=== PATIENT | male | born 1955 | race Caucasian/White ===

== ENCOUNTER 2017-10-11 09:55 | Emergency (ER) | payer OTHER ==
[~2017-10-11] VITALS: Ht 170.2 cm; Wt 44.5 kg
[~2017-10-11 09:55] MED LIST: B-12 PO; CALCA500CH PO; CITA20 PO; CLON.5 PO; DIAZ10 PO; ENOX80I SQ; FURO20 PO; HYDPAM25 PO; IMATINIB 400 MG; LEVSOD25 PO; LEVSOD75 PO; LISI20 PO; MULVITMIND; OMEP20ER PO; OXYC5 PO; POTA10T PO; TRAM50 PO; TRAZ50 PO; Vitamin C100 M1; ZOLP10 PO; Zofran Odt4 MG SL
[2017-10-11] MEDS ORDERED: DOXE25 PO (11:07)
[2017-10-11] MEDS ORDERED: CYAN1000I IM (11:08)
[2017-10-11] MEDS ORDERED: SIME80CH PO (11:09)
[2017-10-11] MEDS ORDERED: OMEPRAZOLE MAGN20 MG PO (11:09)
== END 2017-10-11 12:05 | disposition home or self-care (01) ==
LOC: ER 09:55
DX: K94.23 Gastrostomy malfunction (principal); Z88.8 Allergy status to other drugs, medicaments and biological substances; Z79.899 Other long term (current) drug therapy; I10 Essential (primary) hypertension
CPT/HCPCS: 99282

== ENCOUNTER 2018-11-20 15:18 | Observation (INO) | payer OTHER ==
[~2018-11-20] VITALS: Ht 167.6 cm; Wt 42.1 kg
[~2018-11-20 15:18] MED LIST changes: +CYAN1000I IM; +DOXE25 PO; +OMEPRAZOLE20 MG PO; +SIME80CH PO
[2018-11-20 15:41] LABS: BASOPHILS ABSOLUTE AUTO 0.03 K/mm3 (0.00-0.23); BASOPHILS PERCENT AUTO 0 % (0-2); EOSINOPHILS ABSOLUTE AUTO 0.01 K/mm3 (0.00-0.68); EOSINOPHILS PERCENT AUTO 0 % (0-6); Hematocrit 31.8 % (37.0-53.0); IMMATURE GRAN ABSOLUTE AUTO 0.15 K/mm3 (0.00-0.10); IMMATURE GRAN PERCENT AUTO 1 % (0-1); LYMPHOCYTES ABSOLUTE AUTO 1.77 K/mm3 (0.84-5.20); LYMPHOCYTES PERCENT AUTO 10 % (21-46); MONOCYTES ABSOLUTE AUTO 1.68 K/mm3 (0.16-1.47); MONOCYTES PERCENT AUTO 9 % (4-13); Mean Corpuscular HGB 32.8 pg (26.0-34.0); Mean Corpuscular HGB Conc 34.6 g/dL (31.5-36.5); Mean Platelet Volume 10.2 fL (9.1-12.4); NEUTROPHILS ABSOLUTE AUTO 14.96 K/mm3 (1.96-9.15); NEUTROPHILS PERCENT AUTO 80 % (41-73); Platelet Count 396 K/mm3 (150-400); RDW Coefficient Variation 16.1 % (11.7-14.2); Red Blood Cell Count 3.35 M/mm3 (4.30-5.90)
[2018-11-20 15:44] LABS: Mean Corpuscular Volume 95 fL (80-100)
[2018-11-20 16:01] LABS: Alanine Aminotransfer (ALT/SGP 11 U/L (12-78); Albumin, Blood 1.8 g/dL (3.4-5.0); Albumin/Globulin Ratio 0.4 (0.8-1.8); Alk Phos 95 U/L (50-136); Anion Gap 9 mmol/L (6-16); Aspartate Aminotrans (AST/SGOT 23 U/L (12-37); Blood Urea Nitrogen 23 mg/dL (8-24); Bun/Creatinine Ratio 30.5 (12.0-20.0); CO2, Blood 31 mmol/L (21-32); Calcium, Blood 6.8 mg/dL (8.5-10.1); Chloride, Blood 101 mmol/L (98-108); Creatinine, Blood 0.76 mg/dL (0.60-1.20); Glomerular Filtration Rate >60 (60-); Glucose, Blood 60 mg/dL (70-99); Potassium, Blood 2.8 mmol/L (3.5-5.5); Sodium, Blood 141 mmol/L (136-145); Total Protein, Blood 5.8 g/dL (6.4-8.2)
[2018-11-20 17:13] LABS: Troponin I <0.015 ng/mL (0.000-0.040)
[2018-11-20 21:05] LABS: Thyroid Stimulating Hormone 0.931 uIU/mL (0.360-4.800)
--- NOTE | 2018-11-20 21:20 | NUR ---
ADMISSION NOTE PT ARRIVED TO UNIT VIA STRETCHER, SLIDE TRANSFER TO BED. PT IS A&OX4, REPORTS BEING NONAMBULATORY FOR 2-3 WEEKS. PT IS CACHECTIC, REPORTS POOR APPETITE AND N/V/D FOR THE "LAST FEW MONTHS". K+ 2.8 UPON ARRIVAL, RECIEVED KCL IN ER. PLACED ON SUPPLEMENTAL O2 2L VIA NC UPON ARRIVAL, SEE NOTE. ASSUMING CARE OF PT.
--- NOTE | 2018-11-20 21:42 | NUR ---
O2 SATS O2 SATS 87% ON RA. PLACED ON 2L VIA NC; O2 SATS 94%.
[2018-11-20] MEDS ORDERED: Anti-Diarrheal2 MG PO (23:07)
[2018-11-20] MEDS ORDERED: POTA8 PO (23:09)
[2018-11-20] MEDS ORDERED: Prinivil10 MG PO (23:10)
[2018-11-20] MEDS ORDERED: STIVARGA40 MG PO (23:10)
[2018-11-20] MEDS ORDERED: VENL75ER PO (23:11)
--- NOTE | 2018-11-21 05:16 | NUR ---
SHIFT SUMMARY PT IS VERY FLAT, WITHDRAWN, DEPRESSED. A&OX4, CALL LT APPROP. STOOD AT SIDE OF BED TO VOID WITH 2 PERS ASSIST. PT VERY WEAK AND FRAIL. BED ALARM ON FOR SAFETY. ON 2L VIA NC, O2 SATS 93% AT THIS TIME. BASELINE RA. DENIES ANY PAIN OR ANXIETY. NO N/V/D TONIGHT, STOOL SAMPLE STILL NEEDED. TELE IN PLACE; NSR @ 81 BPM. MEPILEX PLACED ON COCCYX FOR PREVENTIVE MEASURES, HOWEVER, PT REPOSITIONS SELF IN BED FINE. WILL CONT TO MONITOR AND PROVIDE CARE UNTIL PRESUMED BY ONCOMING RN.
[2018-11-21 05:48] LABS: BASOPHILS ABSOLUTE AUTO 0.02 K/mm3 (0.00-0.23); BASOPHILS PERCENT AUTO 0 % (0-2); EOSINOPHILS ABSOLUTE AUTO 0.02 K/mm3 (0.00-0.68); EOSINOPHILS PERCENT AUTO 0 % (0-6); Hematocrit 31.9 % (37.0-53.0); Hemoglobin 10.7 g/dL (13.5-17.5); IMMATURE GRAN PERCENT AUTO 1 % (0-1); LYMPHOCYTES ABSOLUTE AUTO 1.84 K/mm3 (0.84-5.20); LYMPHOCYTES PERCENT AUTO 11 % (21-46); MONOCYTES PERCENT AUTO 13 % (4-13); Mean Corpuscular HGB Conc 33.5 g/dL (31.5-36.5); Mean Corpuscular Volume 96 fL (80-100); NEUTROPHILS ABSOLUTE AUTO 12.43 K/mm3 (1.96-9.15); NEUTROPHILS PERCENT AUTO 75 % (41-73); Platelet Count 232 K/mm3 (150-400); RDW Coefficient Variation 16.5 % (11.7-14.2); RDW Standard Deviation 57.9 fL (35.1-46.3); Red Blood Cell Count 3.34 M/mm3 (4.30-5.90); White Blood Cell Count 16.51 K/mm3 (4.00-11.30)
[2018-11-21 06:02] LABS: Alanine Aminotransfer (ALT/SGP 9 U/L (12-78); Albumin, Blood 1.6 g/dL (3.4-5.0); Albumin/Globulin Ratio 0.4 (0.8-1.8); Alk Phos 87 U/L (50-136); Anion Gap 9 mmol/L (6-16); Aspartate Aminotrans (AST/SGOT 24 U/L (12-37); Bilirubin, Total 0.9 mg/dL (0.1-1.0); Blood Urea Nitrogen 22 mg/dL (8-24); Bun/Creatinine Ratio 33.4 (12.0-20.0); CO2, Blood 29 mmol/L (21-32); Calcium, Blood 6.8 mg/dL (8.5-10.1); Chloride, Blood 104 mmol/L (98-108); Creatinine, Blood 0.66 mg/dL (0.60-1.20); Globulin, Blood 3.7 g/dL (2.2-4.0); Glomerular Filtration Rate >60 (60-); Glucose, Blood 59 mg/dL (70-99); Magnesium, Blood 2.3 mg/dL (1.6-2.4); Potassium, Blood 2.9 mmol/L (3.5-5.5); Sodium, Blood 142 mmol/L (136-145); Total Protein, Blood 5.3 g/dL (6.4-8.2)
[2018-11-21 14:56] LABS: Source, Urine Clean Catch
[2018-11-21 15:08] LABS: Bilirubin, Urine Neg (Neg); Blood, Urine 4+ (Neg); Glucose Qualitative, Urine Neg (Neg); Ketones, Urine 1+ (Neg); Leukocyte Esterase, Urine 2+ (Neg); Nitrite, Urine Neg (Neg); Protein, Urine 1+ (Neg); Urobilinogen, Urine 1+ (Normal)
[2018-11-21 15:18] LABS: Appearance, Urine Hazy (Clear); Color, Urine Yellow (P-Yellow)
[2018-11-21 15:27] LABS: Bacteria Many /hpf; Mucus Light (0-Heavy); Squamous Epithelial Cells Few /hpf (Few); White Blood Cells, Urine 25-50 /hpf (0-5)
--- NOTE | 2018-11-21 16:07 | NUR ---
SHIFT SUMMARY PT RESTING QUIETLY MOST OF THE DAY. DENIED NEEDS. PT'S SISTER IN TO SEE PT, ASKING QUESTIONS R/T PLAN OF CARE. DR LAY IN TO SEE PT WHEN SISTER OUT OF . CONSULT ORDERED FOR DR GARCIA TO SEE PT. DR GARCIA TO AND DISCUSSED PLAN OF CARE WITH PT AND HIS SISTER. PT REQUESTING TO BE MADE COMFORT CARE AND TO GO HOME ON HOSPICE. DR LAY TO WHEN DR GARCIA WAS LEAVING. BOTH AGREED WITH PLAN OF CARE. PALLATIVE RN TO AND TALKED TO PT AND SISTERS. MEDS ORDERED AND HOSPICE REFERRAL DONE. PT REPORTED TO PALLATIVE CARE RN THAT HE WAS ANXIOUS AND IN PAIN. PT MEDICATED WITH ATIVAN AND ROXANOL. PT REPORTED MEDICATIONS EFFECTIVE. PT HAD C/O NAUSEA BEFORE LUNCH TO SISTER AND REQUESTED A YOGURT; PT REPORTED NAUSEA GONE AFTER EATING A FEW BITES. PT HAS NOT BEEN EATING MUCH AT ALL, BUT FELT BETTER AFTER EATING EVEN A FEW BITES. FAMILY REMAINS IN AT BS. CALL LT IN REACH.
--- NOTE | 2018-11-21 16:27 | NUR ---
INITIAL PAL CARE VISIT/COMFORT CARE VISIT: PAL CARE REFERRAL REQUESTED FOR ADVANCED CARE PLANNING. CASE CONFERENCED WITH THIS AM AND RN THIS AFTERNOON BEFORE MY VISIT. EMR REVIEWED INCLUDING DR GARCIA'S NOTE OF TODAY. PT WAS DX WITH STROMAL GI TUMOR IN 2008 AND WAS RECENTLY UNDERGOING TX TO SHRINK MASS FOR RESECTION. IN THE PAST 6 WEEKS HIS TUMOR SIZE INCREASED FROM 11CM [address] GARCIA IS RECOMMENDING HOSPICE CARE AT THIS TIME AND PT/SISTERS ARE IN AGREEMENT. THEY HAD [facility] FOR THEIR MOTHER AND REQUEST [facility] AT THIS TIME. HOSPICE ORDERS ENTERED WITH DETAILS OF REQUESTS ADDED. MET WITH PT AND SISTERS AT BEDSIDE. ALL THREE REITERATE THAT THEY ARE SEEKING COMFORT CARE AND HOSPICE SERVICES IN PT'S APARTMENT AT [facility] OR [facility] SETTING NEEDED. YIMI, NIELS IN TO DISCUSS OPTIONS AND DC PLANNING WITH THEM AFTER MY VISIT. S/S ASSESSMENT DONE AND PT REPORTING DISCOMFORT, PAIN, ANXIETY AND SL NAUSEA. PT/SISTERS WOULD LIKE COMFORT CARE INITIATED. REPORT CALLED TO AND COMFORT CARE ORDERS OBTAINED AND ENTERED. ALL OF THE NEW ORDERS EXPLAINED TO PT AND FAMILY. PT APPEARS EXHAUSTED. HE IS OF SLIGHT BUILD AND VERY THIN. DISCUSSED RECOMMENDATIONS AND ORDERS WITH HIS BEDSIDE NURSE BEFORE AND AFTER ENTERING ORDERS. PLAN TO ASSESS IN AM FOR S/S AND OTHER NEEDS. WILL FOLLOW WITH CM FOR ADVANCED CARE AND DC PLANNING.
--- NOTE | 2018-11-21 21:26 | NUR ---
11/21/18 2100 DOSING AND DENIES ANY S/S OR DISCOMFORT. ENCOURAGED ORAL INTAKE AND TOOK SIPS OF SODA. DENIED NEED TO VOID.
--- NOTE | 2018-11-22 00:31 | NUR ---
11/22/18 0030 SLEEPING WELL AT THIS TIMES. NO DISCOMFORT OR S/S OBSERVED.
--- NOTE | 2018-11-22 04:56 | NUR ---
11/22/18 0430 CONTINUES TO SLEEP WELL. HAS TURNED HIMSELF SIDE TO SIDE SEVERAL TIMES LAST NIGHT. NO PAIN OR ANXIETY MEDS GIVEN THIS SHIFT YET.
--- NOTE | 2018-11-22 10:51 | NUR ---
PAL CARE COMFORT CARE VISIT. PT SLEEPING SOUNDLY WITH NO VISITORS PRESENT. HE DID NOT STIR TO VERBAL OR GENTLE TACTILE STIMULI. RESP EVEN AND UNLABORED. SLIGHT GRIMACING NOTED SPORATICALLY BUT NO NONVERBAL INDICATORS OF PAIN NOTED OTHERWISE. NO S/S ON AGITATION OR DISTRESS. UPDATE OBTAINED FROM REVIEW OF EMR AND SPOKE WITH RN. PLAN REMAINS FOR PT TO RETURN TO [facility], POSSIBLE TO [facility] SIDE WITH CG AND SISTERS' ASSIST AND HOSPICE/[facility] SERVICES. WILL REMAIN AVAIL NEEDED FOR ADVANCED CARE PLANNING AND S/S MANAGEMENT. SL/PO MEDS MANAGING S/S WELL AT THIS TIME.
--- NOTE | 2018-11-22 19:49 | NUR ---
SHIFT SUMMARY NO ACUTE CHANGES TO PRESENT THIS SHIFT. PT RESTING QUIETLY AT START OF SHIFT. CONTINUED TO DENY NEEDING ANYTHING FOR PAIN FOR SEVERAL HOURS. REFUSED TO EAT ANY MEALS TODAY. OFFERED ASSISTANCE MULTIPLE TIMES, BUT DIFFERENT STAFF. DR POWERSTRATE IN TO SEE PT THIS AM. PT VERY DEPRESSED AT PROGNOSIS, WITH FLAT AFFECT. NOW THAT HE HAS NOT BEEN EATING, PT IS BECOMING DELIRIOUS AND MAKING NONSENSICAL COMMENTS. PT'S SISTERS IN TO SEE PT AND STAYED BY HIS SIDE FOR SEVERAL HOURS. PT TO GO TO [facility] ON HOSPICE, IN THE AM AT 9:30. JEWELL RN HERE TO SEE PT AND SISTERS TODAY AND OBTAIN MED LIST IN PREPARATION FOR TOMORROW. D/C TO BE DONE LETY IN AM TO HAVE PT READY FOR P/U. REPORT GIVEN TO ONCNIDHI RN. CALL LT IN REACH.
--- NOTE | 2018-11-22 22:31 | NUR ---
11/22/18 2200 DOSING. DENIES ANY PAIN OR ANXIETY AT THIS TIME. NO DISTRESS NOTED. DECLINED ANY ORAL INTAKE FOR NOW. FELL BACK ASLEEP.
--- NOTE | 2018-11-23 02:01 | NUR ---
11/23/18 0200 SLEEPING ON SIDE. DENIES ANY PAIN THIS SHIFT. VOIDED ONCE SO FAR. ENCOURAGED ORAL INTAKE OFTEN.
--- NOTE | 2018-11-23 05:25 | NUR ---
11/23/18 0400 SLEEPING WELL. TURNS SELF IN BED.
--- NOTE | 2018-11-23 06:17 | NUR ---
11/23/18 0615 CONTINUES TO DENY NEED FOR PAIN MED OR ANXIETY MED THIS SHIFT. WAS INCONTINENT OF URINE THIS AM IN [place]. MOHIT-CARE GIVEN. OFFERED ORAL INTAKE BUT DECLINED.
[2018-11-23] MEDS ORDERED: ACET325 PO (08:52)
[2018-11-23] MEDS ORDERED: BISA10S PR (08:53)
[2018-11-23] MEDS ORDERED: LORA1 PO (08:53)
[2018-11-23] MEDS ORDERED: ATROPINE 0.01%-10 ML SL (08:53)
[2018-11-23] MEDS ORDERED: MORP20L SL (08:55)
[2018-11-23] MEDS ORDERED: ONDA4ODT MM (08:55)
[2018-11-23] MEDS ORDERED: PROM12.5S PR (08:55)
[2018-11-23] MEDS ORDERED: Transderm-Scop1 EACH TOP (08:56)
[2018-11-23] MEDS ORDERED: Promethazine12.5 M1 PO (08:57)
--- NOTE | 2018-11-23 10:35 | NUR ---
PT DISCHARGED WITH [facility] ON HOSPICE VIA STRETCHER. [facility] AWARE OF PATIENTS TRANSFER.
== END 2018-11-23 10:38 | disposition hospice, home (50) ==
LOC: ER 15:18 → MEDS 15:19 → ENPENDDIS 11-23 08:37 → MEDS 11-23 10:38
PROVIDERS: Emergency Medicine; Physician Assistant; ADMIT Hospitalist
DX: R19.7 Diarrhea, unspecified (principal); E87.6 Hypokalemia; C62.90 Malignant neoplasm of unspecified testis, unspecified whether descended or undescended; C78.80 Secondary malignant neoplasm of unspecified digestive organ; E03.9 Hypothyroidism, unspecified; I10 Essential (primary) hypertension; F41.9 Anxiety disorder, unspecified; F32.9 Major depressive disorder, single episode, unspecified; K21.9 Gastro-esophageal reflux disease without esophagitis; G47.00 Insomnia, unspecified; E83.42 Hypomagnesemia; J91.0 Malignant pleural effusion; D72.829 Elevated white blood cell count, unspecified; E88.09 Other disorders of plasma-protein metabolism, not elsewhere classified; Z66 Do not resuscitate; Z51.5 Encounter for palliative care; Z93.4 Other artificial openings of gastrointestinal tract status; Z90.3 Acquired absence of stomach [part of]; Z79.899 Other long term (current) drug therapy; Z88.8 Allergy status to other drugs, medicaments and biological substances
CPT/HCPCS: 36415; 71045; 80053; 81001; 83605; 83690; 83735; 84443; 84484; 85025; 87040; 87077; 87086; 87186; 93005; 93010; 96361; 96365; 96366; 96367; 96375; 96376; 99285-25; G0378; J2405; J3475; J3480; J7030